=== PATIENT | female | born 1990 | race Caucasian/White ===

== ENCOUNTER 2016-08-07 08:34 | Emergency (ER) | payer SELFPAY ==
[~2016-08-07] VITALS: Ht 165.1 cm; Wt 70.3 kg
[~2016-08-07 08:34] MED LIST: ADVIL200 MG; ADVIL200 MG PO; BENADRYL25 MG PO; CEFTIN500 MG PO; CYCLOBENZAPRINE10 MG PO; DEPO-PROVER150 MG/ML IM; HYDROCODON-ACE1 EAC8 PO; HYDROMORPHONE HC2 MG PO; IBUPROFEN400 MG PO; KEFLEX500 MG PO; LORTAB 7.5-3251 EACH PO; MORPHINE SULFAT15 M1 PO; NOHOMEMEDS; PEN-VEE K,VEET500 MG PO; PERCOCET 5/31 TABLET PO; PHENERGAN25 MG PR; PRENATAL1 EACH; PROZAC20 MG PO; RISPERDAL0.5 MG PO; XANAX0.5 MG PO; ZANAFLEX2 MG PO; ZOFRAN ODT4 MG PO
[2016-08-07 08:39] VITALS: BP 121/71
[2016-08-07] MEDS ORDERED: MOTRIN800 MG PO (10:45)
[2016-08-07] MEDS ORDERED: PERCOCET 5/31 TABLET PO (11:05)
== END 2016-08-07 11:35 | disposition home or self-care (01) ==
LOC: EME 08:34
DX: S99.912A Unspecified injury of left ankle, initial encounter (principal); S80.12XA Contusion of left lower leg, initial encounter; S90.02XA Contusion of left ankle, initial encounter; S90.32XA Contusion of left foot, initial encounter; X50.1XXA Overexertion from prolonged static or awkward postures, initial encounter; W18.30XA Fall on same level, unspecified, initial encounter; Y93.01 Activity, walking, marching and hiking
CPT/HCPCS: 73610; 99281; 99283

== ENCOUNTER 2016-10-09 02:10 | Inpatient (IN) | payer OTHER ==
[~2016-10-09] VITALS: Ht 165.1 cm; Wt 72.7 kg
[~2016-10-09 02:10] MED LIST changes: +MOTRIN800 MG PO
[2016-10-09 03:49] LABS: HEMATOCRIT 36.2 % (36.0-46.0); MCH 28.2 PG (29.0-34.0); MEAN PLAT.VOLUME 9.8 uM^3 (9.5-12.4); PLATELET COUNT 178 K/uL (156-360); RBC DIS.WIDTH-CV 11.9 % (11.8-14.6); RBC DIS.WIDTH-SD 36.5 % (39-53); RED BLOOD COUNT 4.36 M/uL (3.80-5.20); WHITE BLOOD COUNT 4.1 K/uL (4.1-10.2)
[2016-10-09 04:00] LABS: CHLORIDE 106 mEq/L (99-109); POTASSIUM 4.1 mEq/L (3.7-5.4); SODIUM 138 mEq/L (136-147)
[2016-10-09 04:02] LABS: GLUCOSE 92 mg/dL (70-99)
[2016-10-09 04:04] LABS: ANION GAP 8 MEQ/L (2-14)
[2016-10-09 04:05] LABS: SERUM ETHYL ALCOHOL < 10 mg/dL
[2016-10-09 04:06] LABS: GFR ESTIMATE (CALCULATED) > 59 mL/min/
[2016-10-09 04:07] LABS: UREA NITROGEN (BUN) 8 mg/dL (9-23)
[2016-10-09 04:15] LABS: ADD MIUA? YES; BILIRUBIN NEGATIVE; BLOOD NEGATIVE; COLOR STRAW ((YELLOW)); GLUCOSE (STRIP) NEGATIVE; KETONES NEGATIVE; LEUKOCYTES MODERATE; NITRITE NEGATIVE; PROTEIN (STRIP) NEGATIVE; SPECIFIC GRAVITY 1.004 (1.000-1.030); UROBILINOGEN 0.2 MG/DL (0.2-1.0)
[2016-10-09 04:21] LABS: BACTERIA RARE /HPF; EPITHELIAL CELLS 1+ /HPF; MUCUS NONE SEEN /LPF; UCUL ADDED? NO
[2016-10-09 04:23] LABS: AMPHETAMINE NEGATIVE (500 ng/mL); BARBITURATES NEGATIVE (200 ng/mL); BENZODIAZEPINES PRESUMPTIVE POSITIVE (150 ng/mL); COCAINE NEGATIVE (150 ng/mL); INTERNAL CONTROLS VALID? YES; METHADONE NEGATIVE (200 ng/mL); METHAMPHETAMINE NEGATIVE (500 ng/mL); OPIATES (MORPHINE) NEGATIVE (100 ng/mL); OXYCODONE NEGATIVE (100 ng/mL); PHENCYCLIDINE NEGATIVE (25 ng/mL); PROPOXYPHENE NEGATIVE (300 ng/mL); THC CANNABINOIDS NEGATIVE (50 ng/mL); TRICYCLIC ANTIDEPRESSANTS NEGATIVE (300 ng/mL)
[2016-10-09 04:24] LABS: ADD MEDTOX COMMENT Y
[2016-10-09 05:19] LABS: BENZODIAZEPINES, URINE SCREEN POSITIVE (200 ng/mL)
[2016-10-09] MEDS ORDERED: PROZAC20 MG PO (11:10)
[2016-10-09] MEDS ORDERED: DEPO-PROVER150 MG/ML IM (11:11)
[2016-10-09] MEDS ORDERED: RISPERDAL2 MG PO (11:11)
[2016-10-09] MEDS ORDERED: XANAX1 MG PO (11:11)
[2016-10-09] MEDS ORDERED: MINIPRESS1 MG PO (11:12)
[2016-10-09 18:06] VITALS: BP 123/74
[2016-10-10 08:12] VITALS: BP 92/52
[2016-10-10 16:01] VITALS: BP 122/70
[2016-10-11 08:38] VITALS: BP 99/51
[2016-10-11 15:49] VITALS: BP 120/63
[2016-10-12 08:00] VITALS: BP 95/51
[2016-10-12] MEDS ORDERED: TRAZODONE HCL100 MG PO (09:50)
[2016-10-12] MEDS ORDERED: PRAZOSIN HCL1 MG PO (09:50)
[2016-10-12] MEDS ORDERED: FLUOXETINE HCL20 MG PO (09:50)
== END 2016-10-12 11:57 | disposition home or self-care (01) | DRG 885 ==
LOC: EME 02:10 → 1WEST 13:20 → EDOF 13:20 → 1WEST 17:57
PROVIDERS: Emergency Medicine
DX: F31.81 Bipolar II disorder (principal); R45.851 Suicidal ideations; F43.10 Post-traumatic stress disorder, unspecified; T14.8 Other injury of unspecified body region; X78.1XXA Intentional self-harm by knife, initial encounter; F42.9 Obsessive-compulsive disorder, unspecified; F41.0 Panic disorder [episodic paroxysmal anxiety]; F11.21 Opioid dependence, in remission; G89.29 Other chronic pain; Z62.810 Personal history of physical and sexual abuse in childhood; Z87.898 Personal history of other specified conditions
CPT/HCPCS: 80048; 81003; 84999; 85027; 90839; 97150 GO; 97165 GO; 99281; 99285; G0480; Q0177

== ENCOUNTER 2016-10-18 22:11 | Inpatient (IN) | payer OTHER ==
[~2016-10-18] VITALS: Ht 165.1 cm; Wt 73.4 kg
[~2016-10-18 22:11] MED LIST changes: +FLUOXETINE HCL20 MG PO; +MINIPRESS1 MG PO; +PRAZOSIN HCL1 MG PO; +RISPERDAL2 MG PO; +TRAZODONE HCL100 MG PO; +XANAX1 MG PO
[2016-10-18 23:07] LABS: HEMATOCRIT 36.3 % (36.0-46.0); MCH 27.8 PG (29.0-34.0); MCHC 33.9 G/DL (30.0-36.0); MCV 81.9 FL (83-99); MEAN PLAT.VOLUME 9.3 uM^3 (9.5-12.4); PLATELET COUNT 187 K/uL (156-360); RBC DIS.WIDTH-CV 11.9 % (11.8-14.6); RBC DIS.WIDTH-SD 35.8 % (39-53); RED BLOOD COUNT 4.43 M/uL (3.80-5.20); WHITE BLOOD COUNT 4.1 K/uL (4.1-10.2)
[2016-10-18 23:09] LABS: AMPHETAMINE NEGATIVE (500 ng/mL); BARBITURATES NEGATIVE (200 ng/mL); BENZODIAZEPINES PRESUMPTIVE POSITIVE (150 ng/mL); COCAINE NEGATIVE (150 ng/mL); INTERNAL CONTROLS VALID? YES; METHADONE NEGATIVE (200 ng/mL); METHAMPHETAMINE NEGATIVE (500 ng/mL); OPIATES (MORPHINE) NEGATIVE (100 ng/mL); OXYCODONE NEGATIVE (100 ng/mL); PHENCYCLIDINE NEGATIVE (25 ng/mL); PROPOXYPHENE NEGATIVE (300 ng/mL); THC CANNABINOIDS NEGATIVE (50 ng/mL); TRICYCLIC ANTIDEPRESSANTS NEGATIVE (300 ng/mL)
[2016-10-18 23:10] LABS: ADD MEDTOX COMMENT Y
[2016-10-18 23:19] LABS: CHLORIDE 104 mEq/L (99-109); POTASSIUM 3.7 mEq/L (3.7-5.4); SODIUM 135 mEq/L (136-147)
[2016-10-18 23:21] LABS: GLUCOSE 97 mg/dL (70-99)
[2016-10-18 23:23] LABS: ANION GAP 9 MEQ/L (2-14)
[2016-10-18 23:24] LABS: SERUM ETHYL ALCOHOL < 10 mg/dL
[2016-10-18 23:25] LABS: GFR ESTIMATE (CALCULATED) > 59 mL/min/
[2016-10-18 23:26] LABS: UREA NITROGEN (BUN) 9 mg/dL (9-23)
[2016-10-19 00:13] LABS: BENZODIAZEPINES, URINE SCREEN POSITIVE (200 ng/mL)
[2016-10-19] MEDS ORDERED: SEROQUEL100 MG PO (02:25)
[2016-10-19 02:29] LABS: QUANTITATIVE HCG < 4.0 MIU/ML
[2016-10-19 04:33] VITALS: BP 111/57
[2016-10-19] MEDS ORDERED: SEROQUEL200 MG PO (05:13)
[2016-10-19] MEDS ORDERED: XANAX XR1 MG PO (05:18)
[2016-10-19] MEDS ORDERED: BACTRIM,SEPT1 TABLET PO (05:19)
[2016-10-19] MEDS ORDERED: PYRIDIUM200 MG PO (05:38)
[2016-10-19 07:46] VITALS: BP 107/55
[2016-10-19 10:25] LABS: ADD MIUA? YES; BILIRUBIN NEGATIVE; BLOOD NEGATIVE; COLOR AMBER ((YELLOW)); GLUCOSE (STRIP) NEGATIVE; KETONES NEGATIVE; LEUKOCYTES TRACE; NITRITE POSITIVE; PROTEIN (STRIP) NEGATIVE
[2016-10-19 10:27] LABS: BACTERIA NONE SEEN /HPF; EPITHELIAL CELLS RARE /HPF; MUCUS TRACE /LPF; RED BLOOD CELLS 0-5 /HPF (0-5); UCUL ADDED? NO; WHITE BLOOD CELLS 0-5 /HPF (0-5)
[2016-10-19 15:26] VITALS: BP 108/65
[2016-10-20 07:58] VITALS: BP 106/59
[2016-10-20 15:46] VITALS: BP 101/55
[2016-10-21 07:32] VITALS: BP 95/56
[2016-10-21 15:18] VITALS: BP 124/78
[2016-10-22 07:52] VITALS: BP 88/52
[2016-10-22] MEDS ORDERED: BACTRIM,SEPT1 TABLET PO (09:23)
== END 2016-10-22 10:43 | disposition home or self-care (01) | DRG 882 ==
LOC: EME 22:11 → EDOF 10-19 02:15 → 1WEST 10-19 04:27
PROVIDERS: Emergency Medicine
DX: F43.10 Post-traumatic stress disorder, unspecified (principal); F32.9 Major depressive disorder, single episode, unspecified; G43.909 Migraine, unspecified, not intractable, without status migrainosus; G89.29 Other chronic pain; S41.112A Laceration without foreign body of left upper arm, initial encounter; S41.111A Laceration without foreign body of right upper arm, initial encounter; G47.10 Hypersomnia, unspecified
CPT/HCPCS: 80048; 81003; 84702; 84999; 85027; 90839; 97150 GO; 97165 GO; 99281; 99285; G0480; Q0177

== ENCOUNTER 2016-11-05 15:22 | Inpatient (IN) | payer OTHER ==
[~2016-11-05] VITALS: Ht 165.1 cm; Wt 73.5 kg
[~2016-11-05 15:22] MED LIST changes: +BACTRIM,SEPT1 TABLET PO; +PYRIDIUM200 MG PO; +SEROQUEL100 MG PO; +SEROQUEL200 MG PO; +XANAX XR1 MG PO
[2016-11-05] MEDS ORDERED: ALPRAZOLAM ER3 MG PO (19:14)
[2016-11-05] MEDS ORDERED: AMBIEN10 MG PO (19:14)
[2016-11-05 19:19] LABS: ADD MIUA? YES; BILIRUBIN NEGATIVE; BLOOD NEGATIVE; COLOR STRAW ((YELLOW)); GLUCOSE (STRIP) NEGATIVE; KETONES NEGATIVE; LEUKOCYTES TRACE; NITRITE NEGATIVE; PROTEIN (STRIP) NEGATIVE; SPECIFIC GRAVITY 1.006 (1.000-1.030); UROBILINOGEN 0.2 MG/DL (0.2-1.0)
[2016-11-05 19:20] LABS: BACTERIA RARE /HPF; EPITHELIAL CELLS 1+ /HPF; MUCUS TRACE /LPF; RED BLOOD CELLS 0-5 /HPF (0-5); UCUL ADDED? NO; WHITE BLOOD CELLS 0-5 /HPF (0-5)
[2016-11-05 19:51] LABS: AMPHETAMINE NEGATIVE (500 ng/mL); BARBITURATES NEGATIVE (200 ng/mL); BENZODIAZEPINES PRESUMPTIVE POSITIVE (150 ng/mL); COCAINE NEGATIVE (150 ng/mL); INTERNAL CONTROLS VALID? YES; METHADONE NEGATIVE (200 ng/mL); METHAMPHETAMINE NEGATIVE (500 ng/mL); OPIATES (MORPHINE) NEGATIVE (100 ng/mL); OXYCODONE NEGATIVE (100 ng/mL); PHENCYCLIDINE NEGATIVE (25 ng/mL); PROPOXYPHENE NEGATIVE (300 ng/mL); THC CANNABINOIDS NEGATIVE (50 ng/mL); TRICYCLIC ANTIDEPRESSANTS NEGATIVE (300 ng/mL)
[2016-11-05 19:52] LABS: ADD MEDTOX COMMENT Y
[2016-11-05 20:00] VITALS: BP 117/65
[2016-11-05 20:10] LABS: BENZODIAZEPINES, URINE SCREEN POSITIVE (200 ng/mL)
[2016-11-05 20:43] VITALS: BP 117/65
[2016-11-06 07:27] VITALS: BP 104/51
[2016-11-06 15:28] VITALS: BP 96/50
[2016-11-07 07:36] VITALS: BP 109/58
[2016-11-07 15:28] VITALS: BP 106/64
[2016-11-08 07:54] VITALS: BP 96/50
== END 2016-11-08 11:14 | disposition home or self-care (01) | DRG 885 ==
LOC: EME 15:22 → 1WEST 18:30 → EDOF 18:30 → 1WEST 18:30
PROVIDERS: Emergency Medicine
DX: F33.9 Major depressive disorder, recurrent, unspecified (principal); R45.851 Suicidal ideations; F60.9 Personality disorder, unspecified; Z91.5 Personal history of self-harm
CPT/HCPCS: 81003; 84999; 90837; 99281; 99285; J2060

== ENCOUNTER 2016-11-10 18:45 | Emergency (ER) | payer OTHER ==
[~2016-11-10] VITALS: Ht 165.1 cm; Wt 74.0 kg
[~2016-11-10 18:45] MED LIST changes: +ALPRAZOLAM ER3 MG PO; +AMBIEN10 MG PO
[2016-11-10 21:43] VITALS: BP 126/86
== END 2016-11-10 21:44 | disposition home or self-care (01) ==
LOC: EME → EDBD 18:45 → EME 21:44
DX: F60.3 Borderline personality disorder (principal); F33.2 Major depressive disorder, recurrent severe without psychotic features; S51.812A Laceration without foreign body of left forearm, initial encounter; W27.8XXA Contact with other nonpowered hand tool, initial encounter; Z88.5 Allergy status to narcotic agent; Z91.013 Allergy to seafood
CPT/HCPCS: 90837; 99281; 99285

== ENCOUNTER 2016-12-10 01:57 | Emergency (ER) | payer OTHER ==
[~2016-12-10] VITALS: Ht 165.1 cm; Wt 71.9 kg
[2016-12-10 04:32] LABS: ADD MIUA? NO; BILIRUBIN NEGATIVE; BLOOD NEGATIVE; COLOR STRAW ((YELLOW)); GLUCOSE (STRIP) NEGATIVE; KETONES NEGATIVE; LEUKOCYTES NEGATIVE; NITRITE NEGATIVE; PROTEIN (STRIP) NEGATIVE; SPECIFIC GRAVITY 1.004 (1.000-1.030); UCUL ADDED? NO; UROBILINOGEN 0.2 MG/DL (0.2-1.0)
[2016-12-10 04:34] LABS: INTERNAL CONTROL VALID? YES
[2016-12-10 04:43] LABS: COCAINE NEGATIVE (150 ng/mL); METHAMPHETAMINE NEGATIVE (500 ng/mL); OPIATES (MORPHINE) NEGATIVE (100 ng/mL); PHENCYCLIDINE NEGATIVE (25 ng/mL); THC CANNABINOIDS NEGATIVE (50 ng/mL)
[2016-12-10 04:44] LABS: ADD MEDTOX COMMENT Y; AMPHETAMINE NEGATIVE (500 ng/mL); BARBITURATES NEGATIVE (200 ng/mL); BENZODIAZEPINES PRESUMPTIVE POSITIVE (150 ng/mL); INTERNAL CONTROLS VALID? YES; METHADONE NEGATIVE (200 ng/mL); OXYCODONE NEGATIVE (100 ng/mL); PROPOXYPHENE NEGATIVE (300 ng/mL); TRICYCLIC ANTIDEPRESSANTS PRESUMPTIVE POSITIVE (300 ng/mL)
[2016-12-10 04:47] LABS: HEMATOCRIT 33.7 % (36.0-46.0); MCH 28.1 PG (29.0-34.0); MCHC 33.2 G/DL (30.0-36.0); MCV 84.7 FL (83-99); MEAN PLAT.VOLUME 9.4 uM^3 (9.5-12.4); PLATELET COUNT 197 K/uL (156-360); RBC DIS.WIDTH-CV 13.2 % (11.8-14.6); RBC DIS.WIDTH-SD 40.8 % (39-53); RED BLOOD COUNT 3.98 M/uL (3.80-5.20)
[2016-12-10 04:55] LABS: CHLORIDE 108 mEq/L (99-109); SODIUM 142 mEq/L (136-147)
[2016-12-10 04:58] LABS: ANION GAP 9 MEQ/L (2-14)
[2016-12-10 05:16] LABS: QUANTITATIVE HCG < 4.0 MIU/ML
[2016-12-10 05:31] LABS: GLUCOSE 95 mg/dL (70-99)
[2016-12-10 05:35] LABS: GFR ESTIMATE (CALCULATED) > 59 mL/min/; SERUM ETHYL ALCOHOL < 10 mg/dL
[2016-12-10 05:36] LABS: UREA NITROGEN (BUN) 5 mg/dL (9-23)
[2016-12-10 05:40] LABS: BENZODIAZEPINES, URINE SCREEN POSITIVE (200 ng/mL)
[2016-12-10 06:30] LABS: TOTAL BILIRUBIN 0.5 mg/dL (0.0-1.0)
[2016-12-10 06:31] LABS: ALKALINE PHOSPHATASE 82 IU/L (3-129)
[2016-12-10 06:34] LABS: DIRECT BILIRUBIN 0.2 mg/dL (0.0-0.3)
[2016-12-10 06:35] LABS: LIPASE 15 U/L (1.0-51.0)
[2016-12-10 15:03] VITALS: BP 130/77
== END 2016-12-10 15:04 | disposition home or self-care (01) ==
LOC: EME 01:57
PROVIDERS: Emergency Medicine
PROC: 0HQEXZZ Repair Left Lower Arm Skin, External Approach (ICD-10-PCS; principal; 2016-12-10)
DX: F33.2 Major depressive disorder, recurrent severe without psychotic features (principal); S51.812A Laceration without foreign body of left forearm, initial encounter; X78.9XXA Intentional self-harm by unspecified sharp object, initial encounter; F60.3 Borderline personality disorder; F43.10 Post-traumatic stress disorder, unspecified; R45.851 Suicidal ideations; F41.9 Anxiety disorder, unspecified; Z91.5 Personal history of self-harm; Z78.1 Physical restraint status
CPT/HCPCS: 80048; 80076; 81003; 83690; 84702; 84703; 84999; 85027; 90837; 99281; 99285; G0480; J1200; J1630; J2060

== ENCOUNTER 2017-01-06 22:36 | Emergency (ER) | payer OTHER ==
[~2017-01-06] VITALS: Ht 165.1 cm; Wt 75.0 kg
[2017-01-06 23:23] LABS: HEMATOCRIT 37.3 % (36.0-46.0); MCH 28.2 PG (29.0-34.0); MCV 82.7 FL (83-99); MEAN PLAT.VOLUME 10.1 uM^3 (9.5-12.4); PLATELET COUNT 213 K/uL (156-360); RBC DIS.WIDTH-CV 12.1 % (11.8-14.6); RBC DIS.WIDTH-SD 37.1 % (39-53); RED BLOOD COUNT 4.51 M/uL (3.80-5.20); WHITE BLOOD COUNT 5.4 K/uL (4.1-10.2)
[2017-01-06 23:33] LABS: CHLORIDE 116 mEq/L (99-109); POTASSIUM 3.3 mEq/L (3.7-5.4); SODIUM 145 mEq/L (136-147)
[2017-01-06 23:35] LABS: GLUCOSE 103 mg/dL (70-99)
[2017-01-06 23:37] LABS: ANION GAP 12 MEQ/L (2-14)
[2017-01-06 23:38] LABS: SERUM ETHYL ALCOHOL 132 mg/dL
[2017-01-06 23:39] LABS: GFR ESTIMATE (CALCULATED) > 59 mL/min/
[2017-01-06 23:40] LABS: UREA NITROGEN (BUN) 6 mg/dL (9-23)
[2017-01-06 23:42] LABS: CREATINE KINASE 78 IU/L (1-294); TOTAL CK 78 IU/L (1-294)
[2017-01-06 23:48] LABS: QUANTITATIVE HCG < 4.0 MIU/ML
[2017-01-06 23:49] LABS: CK-MB 0.5 ng/mL (0.0-4.9)
[2017-01-07 00:22] LABS: ADD MIUA? YES; BILIRUBIN NEGATIVE; BLOOD MODERATE; COLOR STRAW ((YELLOW)); GLUCOSE (STRIP) NEGATIVE; KETONES NEGATIVE; LEUKOCYTES NEGATIVE; NITRITE NEGATIVE; PROTEIN (STRIP) NEGATIVE; SPECIFIC GRAVITY 1.003 (1.000-1.030); UROBILINOGEN 0.2 MG/DL (0.2-1.0)
[2017-01-07 00:37] LABS: ADD MEDTOX COMMENT Y; AMPHETAMINE NEGATIVE (500 ng/mL); BARBITURATES NEGATIVE (200 ng/mL); BENZODIAZEPINES PRESUMPTIVE POSITIVE (150 ng/mL); COCAINE NEGATIVE (150 ng/mL); INTERNAL CONTROLS VALID? YES; METHADONE NEGATIVE (200 ng/mL); METHAMPHETAMINE NEGATIVE (500 ng/mL); OPIATES (MORPHINE) NEGATIVE (100 ng/mL); OXYCODONE NEGATIVE (100 ng/mL); PHENCYCLIDINE NEGATIVE (25 ng/mL); PROPOXYPHENE NEGATIVE (300 ng/mL); THC CANNABINOIDS NEGATIVE (50 ng/mL); TRICYCLIC ANTIDEPRESSANTS NEGATIVE (300 ng/mL)
[2017-01-07 00:40] LABS: BACTERIA RARE /HPF; EPITHELIAL CELLS 1+ /HPF; MUCUS TRACE /LPF; RED BLOOD CELLS 0-5 /HPF (0-5); UCUL ADDED? NO; WHITE BLOOD CELLS 0-5 /HPF (0-5)
[2017-01-07 03:24] LABS: BENZODIAZEPINES, URINE SCREEN POSITIVE (200 ng/mL)
[2017-01-07 11:51] VITALS: BP 112/64
== END 2017-01-07 12:22 | disposition home or self-care (01) ==
LOC: EME 22:36
PROVIDERS: Emergency Medicine
DX: F32.9 Major depressive disorder, single episode, unspecified (principal); F91.9 Conduct disorder, unspecified; S51.811A Laceration without foreign body of right forearm, initial encounter; S51.812A Laceration without foreign body of left forearm, initial encounter; X78.9XXA Intentional self-harm by unspecified sharp object, initial encounter; Y92.003 Bedroom of unspecified non-institutional (private) residence as the place of occurrence of the external cause
CPT/HCPCS: 80048; 81003; 82550; 82553; 84702; 84999; 85027; 90837; 99281; 99285; G0480; J1630; J2060; J7030

== ENCOUNTER 2017-02-03 21:11 | Emergency (ER) | payer OTHER ==
[~2017-02-03] VITALS: Ht 165.1 cm; Wt 74.6 kg
[2017-02-03 21:50] LABS: HEMATOCRIT 36.7 % (36.0-46.0); MCH 28.1 PG (29.0-34.0); MCHC 34.1 G/DL (30.0-36.0); MCV 82.5 FL (83-99); MEAN PLAT.VOLUME 9.8 uM^3 (9.5-12.4); PLATELET COUNT 204 K/uL (156-360); RBC DIS.WIDTH-CV 12.2 % (11.8-14.6); RBC DIS.WIDTH-SD 36.7 % (39-53); RED BLOOD COUNT 4.45 M/uL (3.80-5.20); WHITE BLOOD COUNT 4.7 K/uL (4.1-10.2)
[2017-02-03 22:03] LABS: CHLORIDE 111 mEq/L (99-109); POTASSIUM 3.3 mEq/L (3.7-5.4); SODIUM 143 mEq/L (136-147)
[2017-02-03 22:05] LABS: GLUCOSE 104 mg/dL (70-99)
[2017-02-03 22:06] LABS: ANION GAP 13 MEQ/L (2-14)
[2017-02-03 22:07] LABS: TOTAL BILIRUBIN 0.4 mg/dL (0.0-1.0)
[2017-02-03 22:08] LABS: ALKALINE PHOSPHATASE 114 IU/L (3-129); SERUM ETHYL ALCOHOL 27 mg/dL
[2017-02-03 22:09] LABS: GFR ESTIMATE (CALCULATED) > 59 mL/min/
[2017-02-03 22:10] LABS: UREA NITROGEN (BUN) 11 mg/dL (9-23)
[2017-02-03 22:17] LABS: QUANTITATIVE HCG < 4.0 MIU/ML
[2017-02-03 23:05] VITALS: BP 110/75
== END 2017-02-03 23:13 | disposition home or self-care (01) ==
LOC: EME → EDBD 21:11 → EME 21:11
PROVIDERS: Emergency Medicine
DX: F41.9 Anxiety disorder, unspecified (principal); F33.1 Major depressive disorder, recurrent, moderate; F43.10 Post-traumatic stress disorder, unspecified; F60.3 Borderline personality disorder; F42.9 Obsessive-compulsive disorder, unspecified; F20.9 Schizophrenia, unspecified; F17.200 Nicotine dependence, unspecified, uncomplicated
CPT/HCPCS: 80053; 81003; 84702; 85027; 90839; 99281; 99285; G0480; J1630

== ENCOUNTER 2017-02-27 23:52 | Emergency (ER) | payer OTHER ==
[~2017-02-27] VITALS: Ht 165.1 cm; Wt 81.5 kg
[2017-02-28 00:44] LABS: HEMATOCRIT 33.9 % (36.0-46.0); MCH 27.8 PG (29.0-34.0); MCHC 34.2 G/DL (30.0-36.0); MCV 81.1 FL (83-99); MEAN PLAT.VOLUME 9.6 uM^3 (9.5-12.4); PLATELET COUNT 177 K/uL (156-360); RBC DIS.WIDTH-SD 35.2 % (39-53); RED BLOOD COUNT 4.18 M/uL (3.80-5.20); WHITE BLOOD COUNT 6.3 K/uL (4.1-10.2)
[2017-02-28 00:55] LABS: CHLORIDE 112 mEq/L (99-109); POTASSIUM 3.5 mEq/L (3.7-5.4); SODIUM 143 mEq/L (136-147)
[2017-02-28 00:57] LABS: GLUCOSE 91 mg/dL (70-99)
[2017-02-28 00:58] LABS: ANION GAP 8 MEQ/L (2-14)
[2017-02-28 01:01] LABS: GFR ESTIMATE (CALCULATED) > 59 mL/min/
[2017-02-28 01:02] LABS: UREA NITROGEN (BUN) 9 mg/dL (9-23)
[2017-02-28 01:09] LABS: QUANTITATIVE HCG < 4.0 MIU/ML
[2017-02-28 01:48] LABS: ADD MIUA? NO; BILIRUBIN NEGATIVE; BLOOD NEGATIVE; COLOR STRAW ((YELLOW)); GLUCOSE (STRIP) NEGATIVE; KETONES NEGATIVE; LEUKOCYTES NEGATIVE; NITRITE NEGATIVE; PROTEIN (STRIP) NEGATIVE; SPECIFIC GRAVITY 1.005 (1.000-1.030); UCUL ADDED? NO; UROBILINOGEN 0.2 MG/DL (0.2-1.0)
[2017-02-28] MEDS ORDERED: NAPROSYN500 MG PO (01:48)
[2017-02-28] MEDS ORDERED: ZANAFLEX2 MG PO (01:48)
[2017-02-28 02:43] VITALS: BP 101/64
== END 2017-02-28 02:44 | disposition home or self-care (01) ==
LOC: EME 23:52 → EDBD 23:52 → EME 02-28 02:44
PROVIDERS: Emergency Medicine
DX: S16.1XXA Strain of muscle, fascia and tendon at neck level, initial encounter (principal); S00.93XA Contusion of unspecified part of head, initial encounter; S20.312A Abrasion of left front wall of thorax, initial encounter; S30.810A Abrasion of lower back and pelvis, initial encounter; S40.812A Abrasion of left upper arm, initial encounter; Y04.2XXA Assault by strike against or bumped into by another person, initial encounter; Y07.12 Biological mother, perpetrator of maltreatment and neglect; Z76.5 Malingerer [conscious simulation]; R00.0 Tachycardia, unspecified; F17.200 Nicotine dependence, unspecified, uncomplicated
CPT/HCPCS: 72040; 80048; 81003; 84702; 85027; 99281; 99285; J0780; J1200; J7030

== ENCOUNTER 2017-04-09 09:58 | Emergency (ER) | payer OTHER ==
[~2017-04-09] VITALS: Ht 165.1 cm; Wt 76.0 kg
[~2017-04-09 09:58] MED LIST changes: +NAPROSYN500 MG PO
[2017-04-09 12:11] LABS: MCH 27.6 PG (29.0-34.0); MCHC 33.4 G/DL (30.0-36.0); MCV 82.5 FL (83-99); MEAN PLAT.VOLUME 10.1 uM^3 (9.5-12.4); PLATELET COUNT 253 K/uL (156-360); RBC DIS.WIDTH-CV 12.2 % (11.8-14.6); RBC DIS.WIDTH-SD 36.4 % (39-53); RED BLOOD COUNT 4.97 M/uL (3.80-5.20); WHITE BLOOD COUNT 6.5 K/uL (4.1-10.2)
[2017-04-09 12:20] LABS: CHLORIDE 109 mEq/L (99-109); POTASSIUM 4.5 mEq/L (3.7-5.4); SODIUM 142 mEq/L (136-147)
[2017-04-09 12:22] LABS: GLUCOSE 111 mg/dL (70-99)
[2017-04-09 12:23] LABS: ANION GAP 8 MEQ/L (2-14)
[2017-04-09 12:26] LABS: GFR ESTIMATE (CALCULATED) > 59 mL/min/
[2017-04-09 12:27] LABS: UREA NITROGEN (BUN) 11 mg/dL (9-23)
[2017-04-09 12:36] LABS: QUANTITATIVE HCG < 4.0 MIU/ML
[2017-04-09] MEDS ORDERED: TESSALON PERLE100 MG PO (13:04)
[2017-04-09] MEDS ORDERED: ZOFRAN ODT4 MG PO (13:04)
[2017-04-09] MEDS ORDERED: PREDNISONE10 M1 PO (13:04)
[2017-04-09 13:12] VITALS: BP 110/81
== END 2017-04-09 13:24 | disposition home or self-care (01) ==
LOC: EME 09:58
PROVIDERS: Physician Assistant
DX: J06.9 Acute upper respiratory infection, unspecified (principal); R11.2 Nausea with vomiting, unspecified; R19.7 Diarrhea, unspecified; F31.9 Bipolar disorder, unspecified; F32.9 Major depressive disorder, single episode, unspecified
CPT/HCPCS: 71020; 80048; 84702; 85027; 99281; 99283